=== PATIENT | female | born 1975 | race Caucasian/White ===

== ENCOUNTER 2017-05-20 15:20 | Emergency (ER) | payer MEDICAID ==
[~2017-05-20] VITALS: Ht 175.3 cm; Wt 58.0 kg
[~2017-05-20 15:20] MED LIST: ALBU6.7H INH; ONDA4TAB12 PO
[2017-05-20] MEDS ORDERED: BENZ-38 PO (17:03)
[2017-05-20] MEDS ORDERED: ONDA4TAB9 SL (17:03)
[2017-05-20] MEDS ORDERED: ALBU8HFA PO (17:03)
[2017-05-20 17:09] VITALS: BP 138/85
== END 2017-05-20 17:10 | disposition home or self-care (01) ==
LOC: ER 15:21
DX: R50.9 Fever, unspecified (principal); R05 Cough
CPT/HCPCS: 99281

== ENCOUNTER 2019-02-22 13:30 | Emergency (ER) | payer MEDICAID ==
[~2019-02-22] VITALS: Ht 175.3 cm; Wt 56.4 kg
[~2019-02-22 13:30] MED LIST changes: -ALBU6.7H INH; +ALBU6.7H9 INH
[2019-02-22 15:58] VITALS: BP 135/85
== END 2019-02-22 16:00 | disposition home or self-care (01) ==
LOC: ER 13:31
DX: S00.83XA Contusion of other part of head, initial encounter (principal); Z98.890 Other specified postprocedural states; Y04.0XXA Assault by unarmed brawl or fight, initial encounter; Y93.89 Activity, other specified; Y92.89 Other specified places as the place of occurrence of the external cause; Y99.9 Unspecified external cause status
CPT/HCPCS: 70486; 99284

== ENCOUNTER 2020-07-16 18:49 | Emergency (ER) | payer BC, MEDICAID ==
[~2020-07-16] VITALS: Ht 175.3 cm; Wt 63.6 kg
[2020-07-16] MEDS ORDERED: CEPH250T PO (20:25)
[2020-07-16] MEDS ORDERED: LIDOcaine 1% W/epiNEPHrine 1:200,000 10ml vial IJ ONE (20:35)
[2020-07-16] MEDS ORDERED: TETanus/Pertussis (Acell)/Diphther VAC/PF (Tdap-Adult) 0.5ml syringe IMVAC ONE (20:35)
[2020-07-16 21:42] VITALS: BP 110/78
== END 2020-07-16 21:54 | disposition home or self-care (01) ==
LOC: ER 18:50
DX: S61.212A Laceration without foreign body of right middle finger without damage to nail, initial encounter (principal); Z72.89 Other problems related to lifestyle; Z60.2 Problems related to living alone; Z98.890 Other specified postprocedural states; Z79.899 Other long term (current) drug therapy; W31.89XA Contact with other specified machinery, initial encounter; Y93.89 Activity, other specified; Y92.89 Other specified places as the place of occurrence of the external cause; Y99.8 Other external cause status
CPT/HCPCS: 12001; 73130; 90471; 90715; 99283